=== PATIENT | male | born 1940 | race Caucasian/White ===

== ENCOUNTER 2023-12-22 07:38 | Day surgery (SDC) | payer MEDICARE ==
[2023-12-22] MEDS ORDERED: Xylocaine-Mpf 2% 5 Ml Vial IJ ONE (07:39)
[2023-12-22] MEDS ORDERED: Depo-Medrol 40 MG/ML IM ONE (07:39)
[2023-12-22] MEDS ORDERED: DIPRIVAN 200 MG/20 ML IV ONE (09:38)
--- NOTE | 2023-12-22 11:52 | XRAY ---
Indication: Bilateral L4-S1 MBB. Intraoperative fluoroscopy provided for 7 seconds. Single digital spot image submitted for interpretation demonstrates posterior needle tips projecting over the expected left and right L4-S1 nerve roots. Correlate with intraoperative findings/report.
--- NOTE | 2023-12-22 12:12 | XRAY ---
7 seconds of fluoroscopy was used in surgery for a bilateral L4-S1 MBB.
== END 2023-12-22 10:10 | disposition home or self-care (01) ==
LOC: SDC-PAIN 07:38
PROVIDERS: ATTEND Psychiatry & Neurology Pain Medicine
DX: M47.816 Spondylosis without myelopathy or radiculopathy, lumbar region (principal); E11.9 Type 2 diabetes mellitus without complications
CPT/HCPCS: 64493; 64494; 72020; 77002; 82947; J2704

== ENCOUNTER 2024-01-20 07:08 | Day surgery (SDC) | payer MEDICARE ==
[2024-01-20] MEDS ORDERED: Depo-Medrol 40 MG/ML IM ONE (07:09)
[2024-01-20] MEDS ORDERED: BUPIVACAINE 0.5% VIAL IJ ONE (07:09)
[2024-01-20] MEDS ORDERED: DIPRIVAN 200 MG/20 ML IV ONE (09:00)
--- NOTE | 2024-01-20 11:12 | XRAY ---
Indication: Bilateral L4-S1 MBB. Intraoperative fluoroscopy provided for 14 seconds. Single digital spot image submitted for interpretation demonstrates posterior needle tips projecting over expected left and right L4-S1 nerve roots. Correlate with intraoperative findings/report.
--- NOTE | 2024-01-20 11:33 | XRAY ---
14 seconds of fluoroscopy was used in surgery for a bilateral L4-S1 MBB.
== END 2024-01-20 09:32 | disposition home or self-care (01) ==
LOC: SDC-PAIN 07:08
PROVIDERS: ATTEND Psychiatry & Neurology Pain Medicine
DX: M47.816 Spondylosis without myelopathy or radiculopathy, lumbar region (principal); E11.9 Type 2 diabetes mellitus without complications
CPT/HCPCS: 64493; 64494; 72020; 77002; 82947; J2704